=== PATIENT | female | born 1975 | race Caucasian/White ===

== ENCOUNTER 2021-09-12 15:33 | Outpatient (CLI) | payer BC | END 2021-09-12 15:34 | disposition home or self-care (01) | LOC: CTENTCT 15:33 | PROVIDERS: ATTEND Specialist | DX: J32.8 Other chronic sinusitis (principal) | CPT/HCPCS: 70486 ==

== ENCOUNTER 2024-11-05 10:37 | Outpatient (CLI) | payer BC | END 2024-11-05 10:38 | disposition home or self-care (01) | LOC: SCSRAD 10:37 | PROVIDERS: ATTEND Otolaryngology | DX: R05.8 Other specified cough (principal) | CPT/HCPCS: 71046 ==